=== PATIENT | female | born 2000 | race Caucasian/White ===

== ENCOUNTER 2018-07-10 13:31 | Emergency (ER) | payer OTHER ==
[~2018-07-10] VITALS: Ht 165.1 cm; Wt 74.4 kg
[2018-07-10 14:24] VITALS: BP 140/67
--- NOTE | 2018-07-10 15:30 | NUR ---
1ST CALL SEBASTIÁN VAZ N/A [id number] CALL SEBASTIÁN VAZ N/A
--- NOTE | 2018-07-10 15:45 | NUR ---
3ND CALL IN ER LOBBY N/A
== END 2018-07-10 15:30 | disposition left against medical advice (07) ==
LOC: MED 13:31
DX: R11.10 Vomiting, unspecified (principal); R19.7 Diarrhea, unspecified; Z53.21 Procedure and treatment not carried out due to patient leaving prior to being seen by health care provider